=== PATIENT | male | born 1980 | race African-American/Black ===

== ENCOUNTER 2018-01-28 21:54 | Emergency (ER) | payer OTHER ==
[~2018-01-28] VITALS: Ht 180.3 cm; Wt 117.9 kg
[2018-01-28 21:58] VITALS: BP 140/82
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
[2018-01-28] MEDS ORDERED: ACETAMINOPHEN 500 MG TABLET PO ONE (22:45)
[2018-01-28] MEDS ORDERED: TETANUS AND DIPHTHERIA TOX/PF 0.5 ML VIAL. VAX IM ONE (22:45)
[2018-01-28] MEDS ORDERED: ONDANSETRON ODT 4 MG TAB.RAPDIS PO ONE (22:45)
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
== END 2018-01-28 23:12 | disposition home or self-care (01) ==
LOC: ER 21:54
DX: S00.83XA Contusion of other part of head, initial encounter (principal); S60.221A Contusion of right hand, initial encounter; Y04.0XXA Assault by unarmed brawl or fight, initial encounter; Y93.89 Activity, other specified; Y99.8 Other external cause status; Y92.89 Other specified places as the place of occurrence of the external cause
CPT/HCPCS: 70450; 70486; 72125; 73130; 90471; 90714; 99284; Q0162